=== PATIENT | female | born 2000 | race Caucasian/White ===

== ENCOUNTER 2025-04-30 01:26 | Emergency (ER) | payer OTHER, SELFPAY ==
[2025-04-30 01:28] VITALS: BP 144/84
[2025-04-30 01:45] LABS: Hematocrit 34.1 % (37.0-47.0); Hemoglobin 12.5 g/dL (12.0-16.0); Mean Corp Hgb Conc. 36.7 g/dL (33.0-37.0); Mean Corpuscular Volume 87.0 fL (81.0-99.0); Platelet Count 269 10^3/uL (130-400); Red Cell Dist. Width 12.4 % (11.5-14.5)
[2025-04-30 01:55] LABS: HCG, Serum Qualitative Screen Negative
[2025-04-30 02:08] LABS: Blood Urea Nitrogen 8 mg/dl (7-17); Calcium 9.2 mg/dl (8.4-10.2); Carbon Dioxide 20 mmol/L (22-30); Chloride 109 mmol/L (98-107); Glucose 104 mg/dl (70-99); Sodium 140 mmol/L (135-145); eGFR > 60.00
[2025-04-30 05:09] VITALS: BMI 23.7
[2025-04-30 05:18] VITALS: BP 139/91
[2025-04-30 06:00] VITALS: BP 139/82
[2025-04-30] MEDS: NSS 1000 IV (06:04)
[2025-04-30] MEDS: ZOFRAN 4 MG IV (06:05)
--- NOTE | 2025-04-30 06:51 | ED.GENMED ---
History of Present Illness
<John Sanchez DO - Last Filed: 04/30/25 18:49>
General
Chief Complaint: Abdominal Symptoms
Source: patient
Exam Limitations: none
Time Seen by Provider: 04/30/25 04:53
Nursing documentation reviewed up to this point in time: agreed with
History of Present Illness
History of Present Illness:
Note:
CHIEF COMPLAINT(S)
Nausea and vomiting.
HISTORY OF PRESENT ILLNESS
The patient is a 25-year-old female presenting with nausea and vomiting that began approximately three days ago. She reports persistent symptoms over this duration. She admits to marijuana use, which she states occurs regularly. The patient denies
any recent alcohol consumption, but admits to drinking heavily over the weekend, 3 days ago.. She reports feeling unwell and mentions, 'But I smoke all the time,' indicating frequent marijuana use. There is a suggestion of cyclical vomiting syndrome
potentially related to cannabinoid use as she stated, 'Its been three days. Yeah, but I havent smoked in two or three days.'
SOCIAL DETERMINANTS AFFECTING HEALTH
The patient is currently unemployed and resides on her own. Details about her living situation and employment point towards potential stressors affecting her social and health conditions.
REVIEW OF SYSTEMS
- Gastrointestinal: Nausea and vomiting reported.
PHYSICAL EXAM
General: Alert, no acute distress.
Skin: Warm, dry.
Head: Normocephalic, atraumatic.
Neck: Supple, trachea midline.
Eyes, Ears, Nose, Mouth and Throat: Oral mucosa moist.
Cardiovascular: Normal peripheral perfusion, no edema.
Respiratory: Respirations are non-labored.
Gastrointestinal: Abdomen nondistended.
Back: Normal range of motion, Normal alignment.
Musculoskeletal: Normal range of motion, normal strength.
Neurological: Alert and oriented to person, place, time, and situation, no focal neurological deficit observed.
Psychiatric: Cooperative, appropriate mood and affect.
PLAN
- Perform blood work to investigate the cause of symptoms.
- Administer intravenous fluids for hydration and symptomatic relief.
- Monitor the patient for response to treatment and re-evaluate as necessary.
DIFFERENTIAL DIAGNOSIS
The Differential Diagnosis includes, in no particular order and is not limited to:
1. Cannabinoid Hyperemesis Syndrome
2. Gastroenteritis
3. Alcohol Withdrawal
4. Peptic Ulcer Disease
5. Gastritis
6. Pancreatitis
7. Cholecystitis
8. Viral or bacterial infection
9. -related nausea
10. Cyclical Vomiting Syndrome
Review of Systems
<John Sanchez DO - Last Filed: 04/30/25 18:49>
Review of Systems
Allergies reviewed?: Yes
All Other Systems: ROS reviewed and negative except as documented in HPI and ROS
ABD/GI: Reports abdominal pain, nausea and vomiting
Phy Exam
<John Sanchez DO - Last Filed: 04/30/25 18:49>
General Physical Exam
General Presentation: moderate distress
General age: appears stated age
General Skin: warm and pale
General Habitus: normal
General Mental: alert
General Hydration: dry mucous membranes
ENT Exam
ENT Exam: EOMI, pharynx normal, neck supple and normocephalic
Eye Exam
Eye Exam: PERRL, cornea clear and conjunctiva normal
Cardiovascular Exam
Cardiovascular Exam: regular rate/rhythm, no edema, no murmur and normal peripheral pulses
Pulmonary Exam
Pulmonary Exam: lungs clear, no respiratory distress, no rales, no crackles, no rhonchi, no stridor, no wheezing and no cough
Gastrointestinal Exam
Gastrointestinal Exam: normal bowel sounds, non tender, soft, no organomegaly, no pulsatile mass and non distended
Neurological Exam
Neurological Exam: alert, oriented x3, no motor deficits and speech normal
Musculoskeletal Exam
Musculoskeletal Exam: full ROM and no edema
Skin Exam
Skin Exam: normal color, warm/dry, no rash and no petechia
Psychiatric Exam
Psychiatric Exam: normal mood/affect
Course
<John Sanchez, DO - Last Filed: 04/30/25 18:49>
Orders/Labs/Results
Orders:
Orders
04/30/25 01:32
Test Result ONCE
04/30/25 01:36
Basic Metabolic Panel Urgent
Complete Blood Count/No Diff Urgent
HCG, Serum Qualitative Screen Urgent
04/30/25 05:57
0.9% Sodium Chloride 1000 ml [Nss] 1,000 ml IV BOLUS
Ondansetron Injectable [Zofran] 4 mg IV NOW STA
04/30/25 06:12
Add On- LAB Urgent
Tests Added?: ASA, APAP, ETOH
04/30/25 06:39
Acetaminophen Urgent
Comment: ADD ON
Alcohol Urgent
Potassium Urgent
Salicylate Urgent
Comment: ADD ON
04/30/25 08:22
Metoclopramide [Reglan] 10 mg PO NOW STA
Abnormal Lab Results
04/30/25 04/30/25
01:36 06:39
WBC 13.2 H 10^3/uL
(4.8-10.8)
RBC 3.92 L 10^6/uL
(4.20-5.40)
Hct 34.1 L %
(37.0-47.0)
MCH 31.9 H pg
(27.0-31.0)
MPV 11.2 H fL
(7.4-10.4)
Chloride 109 H mmol/L
(98-107)
Carbon Dioxide 20 L mmol/L
(22-30)
Creatinine 0.5 L mg/dL
(0.6-1.0)
Glucose 104 H mg/dl
(70-99)
Salicylates < 1.0 L mg/dl
(2.0-20.0)
Acetaminophen < 10 L ug/ml
(10-30)
04/30/25 01:36
04/30/25 06:39
Vital Signs
Initial and Last Documented VS:
Initial Vital Signs
Pulse Resp BP Pulse Ox
64 20 144/84 100
04/30/25 01:28 04/30/25 01:28 04/30/25 01:28 04/30/25 01:28
Last Documented Vital Signs
Temp Pulse Resp BP Pulse Ox
97.9 F 64 18 129/81 98
04/30/25 08:38 04/30/25 08:38 04/30/25 08:38 04/30/25 08:38 04/30/25 08:38
<Shaka Silverio, DO - Last Filed: 04/30/25 08:26>
Orders/Labs/Results
Orders:
Orders
04/30/25 01:32
Test Result ONCE
04/30/25 01:36
Basic Metabolic Panel Urgent
Complete Blood Count/No Diff Urgent
HCG, Serum Qualitative Screen Urgent
04/30/25 05:57
0.9% Sodium Chloride 1000 ml [Nss] 1,000 ml IV BOLUS
Ondansetron Injectable [Zofran] 4 mg IV NOW STA
04/30/25 06:12
Add On- LAB Urgent
Tests Added?: ASA, APAP, ETOH
04/30/25 06:39
Acetaminophen Urgent
Comment: ADD ON
Alcohol Urgent
Potassium Urgent
Salicylate Urgent
Comment: ADD ON
04/30/25 08:22
Metoclopramide [Reglan] 10 mg PO NOW STA
Abnormal Lab Results
04/30/25 04/30/25
01:36 06:39
WBC 13.2 H 10^3/uL
(4.8-10.8)
RBC 3.92 L 10^6/uL
(4.20-5.40)
Hct 34.1 L %
(37.0-47.0)
MCH 31.9 H pg
(27.0-31.0)
MPV 11.2 H fL
(7.4-10.4)
Chloride 109 H mmol/L
(98-107)
Carbon Dioxide 20 L mmol/L
(22-30)
Creatinine 0.5 L mg/dL
(0.6-1.0)
Glucose 104 H mg/dl
(70-99)
Salicylates < 1.0 L mg/dl
(2.0-20.0)
Acetaminophen < 10 L ug/ml
(10-30)
04/30/25 01:36
04/30/25 06:39
Vital Signs
Initial and Last Documented VS:
Initial Vital Signs
Pulse Resp BP Pulse Ox
64 20 144/84 100
04/30/25 01:28 04/30/25 01:28 04/30/25 01:28 04/30/25 01:28
Last Documented Vital Signs
Temp Pulse Resp BP Pulse Ox
97.9 F 64 18 129/81 98
04/30/25 08:38 04/30/25 08:38 04/30/25 08:38 04/30/25 08:38 04/30/25 08:38
<John Sanchez DO - Last Filed: 04/30/25 18:49>
*Pulse Oximetry
SaO2: 98
Oxygen Mode of Delivery: Room air
Patient hypoxic: no
*Critical Care Note
Total Time (30-74mins, 75-104mins- exclusive of procedures): Not Applicable
<Shaka Silverio DO - Last Filed: 04/30/25 08:26>
Update Note
Update Note:
8:20 AM care of patient was initially transitioned earlier in the morning pending reassessment after fluids, blood work and Zofran. Patient presented with vomiting and dry heaves. After Zofran, she is no longer dry heaving. When I assessed the
patient, she is eating ice chips without difficulty. She states she was recently at a [facility] for the same issue. She states they sent a prescription to Zofran to her pharmacy but she never filled it yet. Will give dose of p.o.
Reglan to help with symptoms. Abdomen is soft and nontender on my exam. She is otherwise well-appearing nontoxic and feels comfortable going home. We did discuss the leukocytosis but discussed this is likely reactive. She is afebrile with no
abdominal tenderness
ED Attending Note
<John Sanchez, DO - Last Filed: 04/30/25 18:49>
-
Portions of this chart may have been created with voice recognition software.� Occasional wrong word or��sound alike� substitutions may have occurred due to the inherent limitations of voice recognition software.
Discharge Plan
Departure
Patient Disposition: Home (Routine Discharge)
Date of Disposition: 04/30/25
Time of Disposition: 08:23
Patient with high blood pressure during this ER visit?: No
Discharge Problem:
Nausea and vomiting
Instructions: Nausea and Vomiting, Adult (DC)
Prescriptions:
No Action
No Current Medications
0
Referrals:
Veronique Gamboa DO [Family Provider, Family Practice]
Activity Restrictions/Additional Instructions:
Please return for any worsening symptoms.
You may return at any time if you have further concerns.
As you stated, your recent visit to [facility] resulted in a prescription of Zofran sent to your pharmacy. Please fill this prescription.
Please follow up with your doctor at the first available appointment, preferably this week.
Thank you for choosing [facility].
Interventions
Interventions:
*Risk Screen - Suicide Last Done: 04/30/25 05:09
*General Assessment Last Done: 04/30/25 05:09
*Neglect/Abuse Screening Last Done: 04/30/25 05:09
*ED- Fall Risk Assessment Last Done: 04/30/25 05:09
*ED COVID-19 Vaccine History Last Done: 04/30/25 05:09
*Nursing Disposition Last Done: 04/30/25 08:41
GY-Pqjhrd-Bwzcgjauho Assessment Last Done: 04/30/25 05:16
Discharge Date and Time
Discharge Date/Time: 04/30/25 08:42
Print Language: ALBANIAN
[2025-04-30 06:57] VITALS: BP 138/60
[2025-04-30 07:00] VITALS: BP 116/82
[2025-04-30 07:05] LABS: Potassium 4.0 mmol/L (3.5-5.1); Salicylate < 1.0 mg/dl (2.0-20.0)
[2025-04-30] MEDS: REGLAN 10 MG PO (08:34)
[2025-04-30 08:38] VITALS: BP 129/81
[2025-04-30 10:01] LABS: Acetaminophen < 10 ug/ml (10-30)
== END 2025-04-30 08:42 | disposition home or self-care (01) ==
LOC: EMR 01:26
PROVIDERS: EMERGENCY PHYSICIAN Student in an Organized Health Care Education/Training Program; FAMILY PHYSICIAN Family Medicine
DX: R11.2 Nausea with vomiting, unspecified (principal)
CPT/HCPCS: 99283; 96374; 96361; 80048; 80143; 80179; 82077; 84132; 84703; 85027

== ENCOUNTER 2025-05-01 02:22 | Emergency (ER) | payer OTHER, SELFPAY ==
[2025-05-01 02:26] VITALS: BP 139/89
--- NOTE | 2025-05-01 03:01 | ED.GENMED ---
History of Present Illness
General
Chief Complaint: Abdominal Symptoms
Source: patient, ambulance crew and previous hospital records (ED visit for similar complaint less than 24 hours ago. Multiple ED visits at various ED's including [facility], [facility]
[place])
Exam Limitations: none
Time Seen by Provider: 05/01/25 02:27
Nursing documentation reviewed up to this point in time: agreed with
History of Present Illness
History of Present Illness:
The patient is a 25-year-old female with a long-standing history of recurrent nausea and vomiting, reported to be present for the past year. The patient was recently seen less than 24 hours ago in this ED for similar complaint of N/V and had been
hospitalized overnight at [facility] 04/28-04/29. treated for hypophosphatemia, hypomagnesemia and mild hypokalemia. Upon review of records she was also evaluated in the ED front desk administrator on April 28 at [facility] ED, treated
and released. Multiple ED visits early January of this year as well as multiple ED visits April and August of last year for similar complaints. There has been no significant change in symptoms despite receiving supportive care. She admits to
chronic cannabis use and has been diagnosed with cannabis hyperemesis syndrome in the past. Last cannabis use was several days ago. She believes current nausea and vomiting symptoms are related to recent alcohol consumption over the weekend,
specifically 'two [employer] and seltzer drinks' on Monday night. The patient does not typically take any daily medications but has previously been prescribed Reglan (metoclopramide) and Zofran. Treatment with Reglan was not effective in
alleviating her symptoms. The patient has been advised on the possibility of cannabis hyperemesis syndrome, as the patient regularly uses cannabis and it can take months to resolve after cessation. This syndrome is characterized by nausea, vomiting,
and relief with hot showers, which the patient finds occasionally soothing.
She denies risk of .
She denies hematemesis nor hematochezia.
She has not had a fever nor chills. No close contacts with similar symptoms.
She recently relocated yesterday to reside with her boyfriend locally.
She has history of bipolar disorder, anxiety, hyperventilation syndrome, had been maintained on several psychiatric medications but has not been taking these for quite some time.
Past History
Past History
ED Past Medical History: Psychiatric (Bipolar disorder, anxiety, hyperventilation syndrome) and Other (Cannabis hyperemesis syndrome)
ED Past Surgical History: None
Social History
Tobacco: Non-smoker
Alcohol: Occasional
Drug: Marijuana
Personal: Single
Living: with roommate (Currently residing with her boyfriend)
Employment: Not employed
Family History
Family History: Other (Noncontributory)
Phy Exam
Physical Exam
Physical Exam:
GENERAL: 25-year-old woman appears her stated age. Awake and alert, mildly anxious, mildly restless, easily communicative and overall in no acute distress.
EYE: pupils equal and reactive. anicteric. Eyebrows are shaved.
NECK: Supple, nontender, no meningismus, no significant adenopathy.
ENT: posterior pharynx is clear, oral mucosa is moist. TM clear b/l, nares patent.
CARDIAC: Regular rate and rhythm. no murmur.
LUNGS: Clear breath sounds bilaterally, no acute respiratory distress, no wheezes/rales/rhonchi
ABDOMEN: Soft, nondistended, minimal tenderness epigastric region with deep palpation only, no r/g, no cvat. normoactive BS.
NEUROLOGICAL: Alert and oriented x3, no focal neuro deficits. No tremor. Gait is wilson and steady.
SKIN: Warm and dry, normal color, skin intact. No rash.
MUSCULOSKELETAL: No C/C/E. peripheral pulses are full and equal b/l. No palpable tenderness.
PSYCH: Mildly anxious, mildly restless, cooperative.
Course
Orders/Labs/Results
Orders:
Orders
05/01/25 02:42
Urine Drug Abuse Screen Urgent
05/01/25 02:43
Urinalysis Reflex To Culture Urgent
Test Result ONCE
05/01/25 02:59
0.9% Sodium Chloride 1000 ml [Nss] 1,000 ml IV BOLUS
Diphenhydramine [Benadryl] 25 mg IV NOW STA
Ondansetron Injectable [Zofran] 4 mg IV NOW STA
Pantoprazole [Protonix IV] 40 mg IV NOW STA
05/01/25 03:11
Alcohol Urgent
Complete Blood Count/With Diff Urgent
Comprehensive Metabolic Panel Urgent
HCG, Serum Qualitative Screen Urgent
Lipase Urgent
Magnesium Urgent
Phosphorus Urgent
05/01/25 04:31
Potassium Chloride [KCl] 20 meq PO NOW STA
Abnormal Lab Results
05/01/25
03:11
WBC 11.5 H 10^3/uL
(4.8-10.8)
RBC 3.90 L 10^6/uL
(4.20-5.40)
Hct 34.0 L %
(37.0-47.0)
MPV 10.8 H fL
(7.4-10.4)
Abs Immat Gran (auto) 0.1 H 10^3/uL
(0-0.05)
Absolute Neuts (auto) 8.0 H 10^3/uL
(1.4-6.5)
Absolute Monos (auto) 0.9 H 10^3/uL
(0.1-0.6)
Potassium 3.0 L mmol/L
(3.5-5.1)
Carbon Dioxide 21 L mmol/L
(22-30)
BUN 6 L mg/dl
(7-17)
Creatinine 0.5 L mg/dL
(0.6-1.0)
Glucose 100 H mg/dl
(70-99)
Alkaline Phosphatase 37 L U/L
(38-126)
05/01/25 03:11
05/01/25 03:11
Vital Signs
Initial and Last Documented VS:
Initial Vital Signs
Temp Pulse Resp BP Pulse Ox
97.6 F 53 24 139/89 100
05/01/25 02:26 05/01/25 02:26 05/01/25 02:26 05/01/25 02:26 05/01/25 02:26
Last Documented Vital Signs
Temp Pulse Resp BP Pulse Ox
97.6 F 53 24 139/89 99
05/01/25 02:26 05/01/25 02:26 05/01/25 02:26 05/01/25 02:26 05/01/25 03:44
MDM/Problems Addressed
Differential Diagnosis Includes:
The Differential Diagnosis includes, in no particular order and is not limited to:
1. Cannabis Hyperemesis Syndrome
2. Gastritis
3. Peptic Ulcer Disease
4. Gastroesophageal Reflux Disease (GERD)
5. Gallbladder Disease
6. Pancreatitis
7. Intestinal Obstruction
8. Cyclic Vomiting Syndrome
9. Neurological Causes (e.g., Migraine)
10. Metabolic Disorders (e.g., Hyperthyroidism)
MDM/Problems Addressed:
Recurrent nausea and vomiting.
Chronic cannabis use.
Anxiety, restlessness.
Prior records reviewed.
Previous unremarkable imaging at other institutions.
1. Recheck blood work for any biochemical imbalances.
2. Administer intravenous fluids to maintain hydration.
3. Consider starting treatment with intravenous Zofran (ondansetron) to manage nausea and vomiting. This has been effective in the past.
4. Explore alternative antiemetic options like intravenous Haloperidol.
5. Discuss further cannabis cessation strategies, as continued use can exacerbate symptoms related to cannabis hyperemesis syndrome.
Chronic conditions affecting care:
Chronic cannabis use
Chronic conditions affecting care: Psychiatric illness
*Pulse Oximetry
SaO2: 100
Oxygen Mode of Delivery: Room air
Patient hypoxic: no
*Superintendent Renting Managing Interpretation
Rate: normal
Interpretation: normal
Rhythm: sinus
*Critical Care Note
Total Time (30-74mins, 75-104mins- exclusive of procedures): Not Applicable
Update Note
Update Note:
05:50
Patient resting comfortably after IV fluids, IV Zofran and Benadryl.
No further restlessness, no further nausea.
Abdomen is soft without appreciable tenderness.
Tolerating ice chips, crackers.
Labs revealed normal H&H, mildly elevated white blood cell count, improving from previous.
Mild hypokalemia. Normal BUN and creatinine, normal phosphorus, normal magnesium. Negative hCG. Negative EtOH.
Potassium has been repleted orally.
Strongly encourage patient to discontinue all cannabis use and remain cannabis free.
Recommend clear liquid diet, bland foods and continue Zofran for as needed nausea.
Will refer to our [facility] for follow-up.
ED Attending Note
-
Portions of this chart may have been created with voice recognition software.� Occasional wrong word or��sound alike� substitutions may have occurred due to the inherent limitations of voice recognition software.
Discharge Plan
Departure
Patient Disposition: Home (Routine Discharge)
Date of Disposition: 05/01/25
Time of Disposition: 05:50
Patient with high blood pressure during this ER visit?: No
Condition: Good
Discharge Problem:
Recurrent nausea and vomiting, Cannabis hyperemesis syndrome
Instructions: Cannabis hyperemesis syndrome
Prescriptions:
No Action
No Current Medications
0
Referrals:
[facility] [Outside] - Call in 1-3 days for appt
UNKNOWN - PT DOES,NOT KNOW [Family Provider]
Interventions
Interventions:
*Risk Screen - Suicide Last Done: 05/01/25 02:26
*General Assessment Last Done: 05/01/25 02:26
*Neglect/Abuse Screening Last Done: 05/01/25 02:26
*ED- Fall Risk Assessment Last Done: 05/01/25 03:47
*ED COVID-19 Vaccine History Last Done: 05/01/25 02:26
NH-Dxwvym-Wwrpnagaun Assessment Last Done: 05/01/25 03:45
Discharge Date and Time
Print Language: PORTUGUESE
[2025-05-01] MEDS: PROTONIX IV 40 MG IV (03:13)
[2025-05-01] MEDS: NSS 1000 IV (03:13)
[2025-05-01] MEDS: BENADRYL 25 MG IV (03:13)
[2025-05-01] MEDS: ZOFRAN 4 MG IV (03:13)
[2025-05-01 03:26] LABS: Hematocrit 34.0 % (37.0-47.0); Hemoglobin 12.1 g/dL (12.0-16.0); Mean Corp Hgb Conc. 35.6 g/dL (33.0-37.0); Mean Corpuscular Volume 87.2 fL (81.0-99.0); Nucleated Red Blood Cells % 0 %; Platelet Count 219 10^3/uL (130-400); Red Cell Dist. Width 12.0 % (11.5-14.5)
[2025-05-01 03:36] LABS: HCG, Serum Qualitative Screen Negative
[2025-05-01 03:42] LABS: ALT (SGPT) 23 U/L (0-35); AST (SGOT) 34 U/L (14-36); Albumin 4.7 g/dl (3.5-5.0); Alkaline Phosphatase 37 U/L (38-126); Blood Urea Nitrogen 6 mg/dl (7-17); Calcium 9.4 mg/dl (8.4-10.2); Carbon Dioxide 21 mmol/L (22-30); Chloride 105 mmol/L (98-107); Estimated Creatinine Clearance 93 ml/min; Glucose 100 mg/dl (70-99); Lipase 130 U/L (23-300); Magnesium 1.7 mg/dl (1.6-2.3); Potassium 3.0 mmol/L (3.5-5.1); Sodium 136 mmol/L (135-145); Total Protein 7.1 g/dl (6.3-8.2); eGFR > 60.00
[2025-05-01] MEDS: KCL 20 MEQ PO (05:34)
[2025-05-01] MEDS: HALDOL 1 MG IV (06:36)
[2025-05-01 07:00] LABS: Urine Character Clear (Clear)
[2025-05-01 07:36] LABS: Urine Red Blood Cell 0-2 /HPF (0-2); Urine White Cell 0-2 /HPF (0-5)
== END 2025-05-01 06:40 | disposition home or self-care (01) ==
LOC: EMR 02:22
PROVIDERS: EMERGENCY PHYSICIAN Emergency Medicine
DX: R11.2 Nausea with vomiting, unspecified (principal); F12.90 Cannabis use, unspecified, uncomplicated; E87.6 Hypokalemia; F31.9 Bipolar disorder, unspecified; F41.9 Anxiety disorder, unspecified; F45.8 Other somatoform disorders; Z91.128 Patient's intentional underdosing of medication regimen for other reason
CPT/HCPCS: 99284; 96374; 96375 ×4; 96361; 80053; 80306; 80307; 81003; 81015; 82077; 83690; 83735; 84100; 84703; 85025

== ENCOUNTER 2025-08-01 15:39 | Observation (INO) | payer OTHER, SELFPAY ==
[2025-08-01 10:59] VITALS: BMI 23.2
[2025-08-01] MEDS: ATIVAN 1 MG IV (11:07)
[2025-08-01] MEDS: ZOFRAN 4 MG IV (11:08)
[2025-08-01] MEDS: BENADRYL 25 MG IV (11:08)
--- NOTE | 2025-08-01 11:32 | ED.GENMED ---
History of Present Illness
General
Chief Complaint: Abdominal Pain
Source: patient, records and previous hospital records
Exam Limitations: none
Time Seen by Provider: 08/01/25 10:59
History of Present Illness
History of Present Illness:
25-year-old female presents with anxiety nausea vomiting onset earlier today
She called EMS herself unsure if she could be , apparently has been seen in the ER previously for hyperemesis cannabis she states is is not related to that although smoked marijuana up until yesterday
Through my review of our EMR Dr. Ho's notes patient has been to several ERs with similar episodes of metabolic abnormalities
Patient denies any heavy menstrual bleeding, denies any rectal bleeding
Past History
Past History
ED Past Medical History: Psychiatric (Bipolar disorder, anxiety, hyperventilation syndrome) and Other (Cannabis hyperemesis syndrome)
ED Past Surgical History: None
Social History
Tobacco: Non-smoker
Alcohol: Occasional
Drug: Marijuana
Personal: Single
Living: with roommate (Currently residing with her boyfriend)
Employment: Not employed
Family History
Family History: Other (Noncontributory)
Review of Systems
Review of Systems
All Other Systems: Not applicable
Constitutional: Denies fever or fatigue
Respiratory: Reports no symptoms
ABD/GI: Reports abdominal pain, nausea, vomiting and anorexia
Phy Exam
Physical Exam
Physical Exam:
Physical Exam
General: Anxious 25-year-old nauseous dry heaves
Neck: Lips are slightly dry, no jaundice
Heart: s1/s2 regular rate and rhythm, no murmur. equal radial pulses.
Lungs: no acute respiratory distress. clear bilaterally
Abdomen: Mild epigastric tender, rectal brown guaiac-negative stool
Neuro: alert and oriented. no focal neurological deficits
Skin: no rash
Psychiatric: Agitated but redirectable
Extremities: no edema
Course
Orders/Labs/Results
Orders:
Orders
08/01/25 11:01
Diphenhydramine [Benadryl] 25 mg IV NOW STA
Lorazepam [Ativan] 1 mg IV NOW STA
Ondansetron Injectable [Zofran] 4 mg IV NOW STA
08/01/25 11:02
Drug Screen, Urine [Urine Drug Abuse Screen] Urgent
Test Result ONCE
08/01/25 11:16
Complete Blood Count/With Diff Urgent
08/01/25 11:25
0.9% Sodium Chloride 1000 ml [Nss] 1,000 ml IV BOLUS
08/01/25 12:03
Haloperidol Lactate [Haldol] 3 mg IM NOW STA
08/01/25 12:06
Complete Blood Count/With Diff Urgent
08/01/25 13:17
Type+Screen Urgent
BBK Wristband Number:
08/01/25 14:07
0.9% Sodium Chloride 1000 ml [Nss] 1,000 ml IV BOLUS
Metoclopramide [Reglan] 10 mg IV NOW STA
08/01/25 14:14
Comprehensive Metabolic Panel Urgent
HCG, Serum Qualitative Screen Urgent
Lipase Urgent
08/01/25 14:16
Complete Blood Count/With Diff Urgent
Abnormal Lab Results
08/01/25 08/01/25 08/01/25
11:16 12:06 14:14
WBC 2.7 L 10^3/uL 11.5 H 10^3/uL
(4.8-10.8) (4.8-10.8)
RBC 1.10 L 10^6/uL
(4.20-5.40)
Hgb 3.4 L* g/dL
(12.0-16.0)
Hct 11.3 L* %
(37.0-47.0)
MCV 102.7 H fL
(81.0-99.0)
MCH 31.8 H pg 31.8 H pg
(27.0-31.0) (27.0-31.0)
MCHC 31.0 L g/dL
(33.0-37.0)
Plt Count 72 L 10^3/uL
(130-400)
MPV 10.5 H fL
(7.4-10.4)
Abs Immat Gran (auto)
Absolute Neuts (auto) 9.8 H 10^3/uL
(1.4-6.5)
Absolute Lymphs (auto) 0.4 L 10^3/uL
(1.2-3.4)
Neutrophils % 83.9 H % 85.3 H %
(42.2-75.2) (42.2-75.2)
Lymphocytes % 12.1 L % 10.7 L %
(20.5-51.1) (20.5-51.1)
Chloride 110 H mmol/L
(98-107)
Carbon Dioxide 21 L mmol/L
(22-30)
Glucose 102 H mg/dl
(70-99)
08/01/25
14:16
WBC 14.2 H 10^3/uL
(4.8-10.8)
RBC
Hgb
Hct
MCV
MCH 31.1 H pg
(27.0-31.0)
MCHC
Plt Count
MPV
Abs Immat Gran (auto) 0.1 H 10^3/uL
(0-0.05)
Absolute Neuts (auto) 12.7 H 10^3/uL
(1.4-6.5)
Absolute Lymphs (auto) 0.9 L 10^3/uL
(1.2-3.4)
Neutrophils % 89.8 H %
(42.2-75.2)
Lymphocytes % 6.5 L %
(20.5-51.1)
Chloride
Carbon Dioxide
Glucose
08/01/25 14:16
08/01/25 14:14
Vital Signs
Initial and Last Documented VS:
Initial Vital Signs
Pulse Resp Pulse Ox
67 18 97
08/01/25 10:59 08/01/25 10:59 08/01/25 10:59
Last Documented Vital Signs
Pulse Resp BP Pulse Ox
59 23 130/67 98
08/01/25 15:00 08/01/25 15:00 08/01/25 14:26 08/01/25 15:00
*Pulse Oximetry
SaO2: 97
Oxygen Mode of Delivery: Room air
Patient hypoxic: no
*Critical Care Note
Total Time (30-74mins, 75-104mins- exclusive of procedures): Not Applicable
Update Note
Update Note:
Update will get her comfortable with antiemetics, anxiolytics check screening blood work IV fluids
CBC noted will repeat, in the meantime check type and screen
Patient feeling better after meds taking some ice chips
2:30 PM patient with recurrent emesis, been some issue getting labs, nursing involved, will continue to monitor third dose of antiemetic low threshold to admit
Again patient vomited after ice chips
ED Attending Note
-
Portions of this chart may have been created with voice recognition software.� Occasional wrong word or��sound alike� substitutions may have occurred due to the inherent limitations of voice recognition software.
Discharge Plan
Departure
Patient Disposition: Admit
Date of Disposition: 08/01/25
Time of Disposition: 15:07
Admit to: Med/Surg
Presentation/result/management discussed w/ accepting MD/DO: Hospitalist
Patient with high blood pressure during this ER visit?: No
Condition: Fair
Discharge Problem:
Intractable nausea and vomiting
Prescriptions:
No Action
No Current Medications
0
Referrals:
UNKNOWN - PT NOT,INTERVIEWE [Family Provider]
Interventions
Interventions:
*Risk Screen - Suicide Last Done: 08/01/25 14:34
*General Assessment Last Done: 08/01/25 10:59
*Neglect/Abuse Screening Last Done: 08/01/25 14:34
*ED- Fall Risk Assessment Last Done: 08/01/25 10:59
*ED COVID-19 Vaccine History Last Done: 08/01/25 10:59
*ED Influenza Vaccine History Last Done: 08/01/25 10:59
MS-Hqpufe-Coswisaorg Assessment Last Done: 08/01/25 12:48
Discharge Date and Time
Print Language: LATVIAN
[2025-08-01] MEDS: NSS 1000 IV ×3 (11:50→18:35)
[2025-08-01 11:55] LABS: Hematocrit 11.3 % (37.0-47.0); Hemoglobin 3.4 g/dL (12.0-16.0); Mean Corp Hgb Conc. 31.0 g/dL (33.0-37.0); Mean Corpuscular Volume 102.7 fL (81.0-99.0); Nucleated Red Blood Cells % 0 %; Platelet Count 72 10^3/uL (130-400); Red Cell Dist. Width 12.0 % (11.5-14.5)
[2025-08-01] MEDS: HALDOL 3 MG IM (12:10)
[2025-08-01 12:20] LABS: Anisocytosis 1+; Hypochromasia 1+; Normal RBC Morphology No
[2025-08-01 12:21] LABS: Acanthocytes 1+; Ovalocytes 1+; Polychromasia 1+
[2025-08-01 12:51] LABS: Hematocrit 40.3 % (37.0-47.0); Hemoglobin 13.4 g/dL (12.0-16.0); Mean Corp Hgb Conc. 33.3 g/dL (33.0-37.0); Mean Corpuscular Volume 95.7 fL (81.0-99.0); Nucleated Red Blood Cells % 0 %; Platelet Count 286 10^3/uL (130-400); Red Cell Dist. Width 12.2 % (11.5-14.5)
[2025-08-01 14:00] VITALS: BP 109/64
[2025-08-01] MEDS: REGLAN 10 MG IV (14:17)
[2025-08-01 14:24] LABS: Hematocrit 41.4 % (37.0-47.0); Hemoglobin 14.0 g/dL (12.0-16.0); Mean Corp Hgb Conc. 33.8 g/dL (33.0-37.0); Mean Corpuscular Volume 92.0 fL (81.0-99.0); Nucleated Red Blood Cells % 0.1 %; Platelet Count 283 10^3/uL (130-400); Red Cell Dist. Width 12.1 % (11.5-14.5)
[2025-08-01 14:26] VITALS: BP 130/67
[2025-08-01 15:01] LABS: HCG, Serum Qualitative Screen Negative
[2025-08-01 15:03] LABS: ALT (SGPT) 13 U/L (0-35); AST (SGOT) 23 U/L (14-36); Albumin 4.8 g/dl (3.5-5.0); Alkaline Phosphatase 55 U/L (38-126); Blood Urea Nitrogen 12 mg/dl (7-17); Calcium 9.4 mg/dl (8.4-10.2); Carbon Dioxide 21 mmol/L (22-30); Chloride 110 mmol/L (98-107); Estimated Creatinine Clearance 93 ml/min; Glucose 102 mg/dl (70-99); Lipase 47 U/L (23-300); Potassium 4.1 mmol/L (3.5-5.1); Sodium 140 mmol/L (135-145); Total Protein 7.5 g/dl (6.3-8.2); eGFR > 60.00
--- NOTE | 2025-08-01 15:18 | HPS.HSE ---
Family Physician
-
Family Physician: INTERVIEWE UNKNOWN - PT NOT
Chief Complaint
-
vomiting
History of Present Illness
25-year-old female past medical history of anxiety, bipolar disorder, cannabis hyperemesis syndrome, hyperventilation syndrome, presenting with nausea and vomiting starting today. She complains of pain in her upper belly.
She uses 2-3 bowls of marijuana every day. Denies alcohol or any other drugs. She takes marijuana for frequent headaches.
Patient has had prior hospitalizations for recurrent nausea and vomiting associate with electrolyte abnormalities. She had been hospitalized at [facility] on April 28. She was in the emergency room here on 05/01.
Medical History
Past Medical History
Past Medical History: Reports Other (anxiety, bipolar disorder, cannabis hyperemesis syndrome, hyperventilation syndrome,)
Past Surgical History: Reports None
Social History
Tobacco: Non-smoker
Alcohol: None
Drug: Marijuana
Family History
Family History: Not pertinent
Allergies / Home Medications
Allergies reflects when Allergies were last updated in [facility].
Home Medications with original date entered in [facility]
Allergy/Medication List:
Allergies
Allergy/AdvReac Type Severity Reaction Status Date / Time
No Known Allergies Allergy Verified 05/01/25 03:51
Home Medications
No Meds [No Current Medications] 04/30/25
Review of Systems
-
History Source: Patient
A 12 point ROS was completed and negative except as noted: Yes
Constitutional: Reports No Symptoms
EENT: Reports No Symptoms
Respiratory: Reports No Symptoms
Cardiac: Reports No Symptoms
Abdomen/GI: Reports See HPI
: Reports No Symptoms
Musculoskeletal: Reports No Symptoms
Skin: Reports No Symptoms
Neurological: Reports No Symptoms
Endocrine: Reports No Symptoms
Hematologic/Lymphatic: Reports No Symptoms
Psych: Reports No Symptoms
Physical Exam
Vital Signs
Vital Signs
Pulse Resp BP Pulse Ox
59 23 130/67 98
08/01/25 15:00 08/01/25 15:00 08/01/25 14:26 08/01/25 15:00
Physical Exam
General: Well Developed, Well Nourished and No Apparent Distress
HEENT: NormoCephalic, Moist mucous membranes and Atraumatic
Respiratory: Clear
Cardiac: S1/S2 and Regular Rhythm; No Murmur or Rub
GI: Soft, Non Distended, Normal Bowel Sounds and Tender (epigastric); No Organomegaly
Rectal: Deferred by Provider
Musculoskeletal: No Clubbing, No Cyanosis and No Edema
Skin: No Rash
Neuro: Nonfocal/grossly intact
Laboratory Results
-
08/01/25 14:16
08/01/25 14:14
Laboratory Results
Total Bilirubin 0.7 mg/dl (0.2-1.3) 08/01/25 14:14
AST 23 U/L (14-36) 08/01/25 14:14
ALT 13 U/L (0-35) 08/01/25 14:14
Alkaline Phosphatase 55 U/L (38-126) 08/01/25 14:14
Lipase 47 U/L (23-300) 08/01/25 14:14
Data Reviewed
-
Lab Data: Labs Reviewed by me
Old Records: Reviewed
Impression/Plan
-
IMPRESSION:
PLAN:
# Hyperemesis secondary to recurrent cannabis hyperemesis
-hCG negative
-Lipase unremarkable
- Clear liquid, advance as tolerated
- IV fluids
- Zofran, Reglan given
-Ativan, Haldol given for agitation
- UDS pending
- Initial CBC showing pancytopenia but redraw shows that this was a lab error
# Regular marijuana use
- Takes for recreational/headaches
Anxiety/bipolar disorder
History of hyperventilation syndrome
History of headache/migraine
Full code
DVT prophylaxis-heparin
N.p.o.
[2025-08-01 16:00] VITALS: BP 112/47
--- NOTE | 2025-08-01 16:16 | CM ---
Patient seen at bedside in ED. Patient stated that she lives with her grandmother, Jacklyn in [place] but has been staying with her boyfriend in his [address] [place]. Patient sleepy and did not know name of her PCP but was able to tell
CM that she uses the [facility] in [place] for medications. Patient indicated that her boyfriend would contact her grandmother and she was texting to him to call her grandmother. Patient appeared reluctant to give CM any other information. Patient here as
OBS at this time and CM reviewed OBS form and provided form to patient. Signed form given to refinery operator helper crude unit for filling. CM will continue to follow for discharge planning needs.
Plan; home with significant other
[2025-08-01 17:40] VITALS: BP 141/86; BMI 21.9
[2025-08-01 19:30] VITALS: BP 139/89
[2025-08-01 23:51] VITALS: BP 133/78
[2025-08-02] MEDS: REGLAN 10 MG IV (01:57)
[2025-08-02 03:40] VITALS: BP 139/80
[2025-08-02 07:09] LABS: Hematocrit 38.8 % (37.0-47.0); Hemoglobin 13.1 g/dL (12.0-16.0); Mean Corp Hgb Conc. 33.8 g/dL (33.0-37.0); Mean Corpuscular Volume 92.8 fL (81.0-99.0); Nucleated Red Blood Cells % 0 %; Platelet Count 277 10^3/uL (130-400); Red Cell Dist. Width 12.1 % (11.5-14.5)
[2025-08-02 07:25] VITALS: BP 124/74
[2025-08-02 07:26] LABS: ALT (SGPT) 13 U/L (0-35); AST (SGOT) 26 U/L (14-36); Albumin 4.5 g/dl (3.5-5.0); Alkaline Phosphatase 53 U/L (38-126); Blood Urea Nitrogen 6 mg/dl (7-17); Calcium 9.1 mg/dl (8.4-10.2); Carbon Dioxide 22 mmol/L (22-30); Chloride 104 mmol/L (98-107); Estimated Creatinine Clearance 104 ml/min; Glucose 97 mg/dl (70-99); Sodium 133 mmol/L (135-145); Total Protein 7.2 g/dl (6.3-8.2); eGFR > 60.00
[2025-08-02 07:34] LABS: Potassium 3.8 mmol/L (3.5-5.1)
[2025-08-02] MEDS: NSS 1000 IV (07:49)
--- NOTE | 2025-08-02 10:42 | W.PN.HOSP.TC ---
Today's Communication/Plan
-
d/c
Assessment / Plan
Assessment / Plan
Patient seen and examined with MIREYA Lima present at bedside for the entirety of the interview and physical exam:
Gen: NAD, AAOx3.
Eyes: EOMI, PERRLA, no scleral icterus.
Neck: supple.
CV: RRR, +S1/S2, no m/r/g.
Resp: CTAB, no rales, wheezes, or rhonchi.
Abd: +BS, soft, NT, ND
Skin: No rashes.
Neuro: CN 2-12 intact, non-focal.
Psych: Normal mood and affect.
Recurrent cannabis hyperemesis syndrome:
-Chronic marijuana use used recreationally and to treat headaches
-B-HCG NEG, lipase normal
- Has been on IVF support, antiemetics
-UDS POS for Marijuana (benzo given here)
-clears, advance as tolerated
-Zofran/Reglan PRN
-Telemetry reviewed, no concerning arrhythmias. Patient has been in sinus rhythm.
-Medically cleared for discharge at this time. Will be given a prescription for Zofran. The patient was instructed that should she have persistent vomiting or any other concerning symptoms that she should return to the ER immediately. She
verbally acknowledged understanding of this.
Other problems:
Anxiety/bipolar disorder
h/o hyperventilation syndrome
Migraine headaches
FULL/heparin
Total time spent on d/c = 31 min. This included today's physical exam, progress note, review of laboratory and diagnostic data, preparation of discharge documents and prescriptions, and discussions about the pt's hospital course and discharge plan
with the patient and other medical assistant secretary involved in the patient's care.
Anticipated Discharge: Today
Subjective/Interval History
-
Date of Service: August 02, 2025
Patient currently denies abdominal pain. She had vomiting earlier this morning when she drank a large amount of water but no vomiting since. She is asking to shower and go home.
Objective Data
-
Labs:
Laboratory Results
08/02/25
06:28
WBC 17.1 H
Hgb 13.1
Hct 38.8
Plt Count 277
Sodium 133 L
Potassium 3.8
Chloride 104
Carbon Dioxide 22
BUN 6 L
Creatinine 0.4 L
Glucose 97
Calcium 9.1
Total Bilirubin 0.9
AST 26
ALT 13
Alkaline Phosphatase 53
Vital Signs:
Vital Signs
Temp Pulse Resp BP Pulse Ox
98.6 F 69 18 124/74 97
08/02/25 07:25 08/02/25 07:25 08/02/25 07:25 08/02/25 07:25 08/02/25 07:25
I&O
08/01/25 08/02/25 08/03/25
06:59 06:59 06:59
Intake Total 3000 / 3000
Output Total 800 / 800
Balance 2200 / 2200
[2025-08-02 11:39] VITALS: BP 142/94
[2025-08-02] MEDS: ZOFRAN 4 MG IV (11:50)
--- NOTE | 2025-08-02 12:26 | CM ---
CM reviewed chart, patient seen bedside, for d/c today.
Patient confirms transport home, denies needs from CM.
Plan; home no needs
--- NOTE | 2025-08-02 13:23 | W.DCSUMMARY ---
Discharge Summary
Discharge Data
Date of Admission: 08/01/25
Date of Discharge: 08/02/25
-
Pending Results: No
Hospital Course
Primary diagnoses:
Recurrent cannabinoid hyperemesis syndrome
Secondary diagnoses:
Hyponatremia, mild
Anxiety/bipolar disorder
h/o hyperventilation syndrome
Migraine headaches
Consultants:
None
Imaging:
None
Hospital course: 25-year-old female who was admitted yesterday with a chief complaint of vomiting as outlined in the H&P done on admission. This was due to recurrent cannabinoid hyperemesis syndrome. Patient had no significant electrolyte
abnormalities. She was treated supportively with IV fluids and antiemetics. On the day of discharge the patient denied abdominal pain and was asking to leave the hospital. She was discharged in medically stable condition with strict instructions
to return to the ER if she had any acute concerns.
Discharge Plan
-
Patient Disposition: Home (Routine Discharge)
Discharge Diagnosis/Procedures: Cannabinoid hyperemesis syndrome
Condition: Good
Diet: As tolerated
Activity: As tolerated
Driving Restrictions: As prior to admission
Referrals:
UNKNOWN - PT NOT,INTERVIEWE [Family Provider] - in less than 1 week
Prescriptions:
New
ondansetron HCl 4 mg tablet
4 mg PO Q6H PRN (Reason: nausea) Qty: 14 0RF
Discharge Orders:
Discharge Patient (As Directed); Ordered 08/02/25
Ordered By: Clifford Caldwell
Discharge Date and Time
Discharge Date/Time: 08/02/25 13:11
Print Language: KOREAN
== END 2025-08-02 13:11 | disposition home or self-care (01) ==
LOC: 4 WEST ACU 15:39
PROVIDERS: ADMITTING PHYSICIAN Hospitalist; ATTENDING PHYSICIAN Internal Medicine; EMERGENCY PHYSICIAN Emergency Medicine
DX: R11.16 Cannabis hyperemesis syndrome (principal); E87.1 Hypo-osmolality and hyponatremia; F31.9 Bipolar disorder, unspecified; F41.9 Anxiety disorder, unspecified; G43.909 Migraine, unspecified, not intractable, without status migrainosus; F12.90 Cannabis use, unspecified, uncomplicated
CPT/HCPCS: 80053; 80306; 80307; 82077; 83690; 84703; 85025; 86850; 86900; 86901; 96361; 96372; 96374; 96375; 99284; 99406; G0378

== ENCOUNTER 2025-08-02 20:41 | Emergency (ER) | payer OTHER, SELFPAY ==
[2025-08-02 20:44] VITALS: BP 130/98
[2025-08-02 21:12] VITALS: BP 133/88; BMI 24.4
--- NOTE | 2025-08-02 21:14 | ED.GENMED ---
History of Present Illness
General
Chief Complaint: Abdominal Symptoms
Source: patient
Exam Limitations: none
Time Seen by Provider: 08/02/25 21:05
Nursing documentation reviewed up to this point in time: agreed with
History of Present Illness
History of Present Illness:
25-year-old female with past medical history of cannabinoid hyperemesis syndrome anxiety bipolar presents today with continued vomiting. Patient was just discharged this morning however reports that she was never able to get her Zofran prescription
filled because it was too far. She is requesting that the prescription be sent to a closer pharmacy in [place]. She denies any fever chills no other complaints.
Past History
Past History
ED Past Medical History: Psychiatric (Bipolar disorder, anxiety, hyperventilation syndrome) and Other (Cannabis hyperemesis syndrome)
ED Past Surgical History: None
Social History
Tobacco: Non-smoker
Alcohol: Occasional
Drug: Marijuana
Personal: Single
Living: with roommate (Currently residing with her boyfriend)
Employment: Not employed
Family History
Family History: Other (Noncontributory)
Phy Exam
General Physical Exam
General Presentation: well appearing
General age: appears stated age
General Skin: warm and dry
General Habitus: normal
General Mental: alert
General Hydration: appears well hydrated
Cardiovascular Exam
Cardiovascular Exam: regular rate/rhythm, no murmur and normal peripheral pulses
Pulmonary Exam
Pulmonary Exam: lungs clear and no respiratory distress
Neurological Exam
Neurological Exam: alert and oriented x3
Musculoskeletal Exam
Musculoskeletal Exam: full ROM
Skin Exam
Skin Exam: normal color and warm/dry
Psychiatric Exam
Psychiatric Exam: normal mood/affect
Course
Orders/Labs/Results
Orders:
Orders
08/02/25 21:16
Cardiac Monitoring- Treatment ONCE
IV Insert/Care/Rem.- Treatment PRN
0.9% Sodium Chloride 1000 ml [Nss] 1,000 ml IV BOLUS
08/02/25 21:17
Electrocardiogram (*1) Stat
Reason for Study: Abdominal Pain
EKG- Treatment ONCE
Test Result ONCE
08/02/25 21:24
Complete Blood Count/With Diff Urgent
Comprehensive Metabolic Panel Urgent
HCG, Serum Qualitative Screen Urgent
08/02/25 21:30
Haloperidol Lactate [Haldol] 1 mg IV NOW STA
08/02/25 22:41
Ondansetron Orally Disint [Zofran Odt (Orally Disintegrating)] 4 mg PO NOW STA
Abnormal Lab Results
08/02/25
21:24
WBC 12.5 H 10^3/uL
(4.8-10.8)
RBC 3.93 L 10^6/uL
(4.20-5.40)
Hct 34.6 L %
(37.0-47.0)
MCH 31.6 H pg
(27.0-31.0)
Abs Immat Gran (auto) 0.1 H 10^3/uL
(0-0.05)
Absolute Neuts (auto) 10.2 H 10^3/uL
(1.4-6.5)
Absolute Monos (auto) 0.8 H 10^3/uL
(0.1-0.6)
Neutrophils % 81.4 H %
(42.2-75.2)
Lymphocytes % 11.4 L %
(20.5-51.1)
Sodium 134 L mmol/L
(135-145)
Potassium 3.4 L mmol/L
(3.5-5.1)
Creatinine 0.5 L mg/dL
(0.6-1.0)
Glucose 114 H mg/dl
(70-99)
AST 37 H U/L
(14-36)
08/02/25 21:24
08/02/25 21:24
Vital Signs
Initial and Last Documented VS:
Initial Vital Signs
Temp Pulse Resp BP Pulse Ox
98 F 63 16 130/98 98
08/02/25 20:44 08/02/25 20:44 08/02/25 20:44 08/02/25 20:44 08/02/25 20:44
Last Documented Vital Signs
Temp Pulse Resp BP Pulse Ox
98 F 103 18 121/74 99
08/02/25 20:44 08/02/25 22:45 08/02/25 22:45 08/02/25 22:45 08/02/25 22:45
MDM/Problems Addressed
Differential Diagnosis Includes:
Not limited to cannabinoid hyperemesis dehydration
MDM/Problems Addressed:
25-year-old female was discharged this morning from [place] for hyperemesis related to marijuana and presents back to the ER with continued vomiting. She presents awake alert no acute distress feeling much better with Haldol IV/Fluids.. Repeat
EKG was checked QTc within limits. Patient reports when she was discharged this morning they sent a prescription to her pharmacy that was too far. She asked that I send it to a closer pharmacy in [place] which I did. I sent a new prescription
for Zofran. We had a discussion again stated this is likely marijuana encourage patient to stop. She has no acute distress well-appearing stable for discharge home
*Pulse Oximetry
SaO2: 98
Oxygen Mode of Delivery: Room air
Patient hypoxic: no
*Critical Care Note
Total Time (30-74mins, 75-104mins- exclusive of procedures): Not Applicable
Data Reviewed
Review of Other/Old Records Reveals: Labs and Discharge Summary
ED Attending Note
-
Portions of this chart may have been created with voice recognition software.� Occasional wrong word or��sound alike� substitutions may have occurred due to the inherent limitations of voice recognition software.
Discharge Plan
Departure
Patient Disposition: Home (Routine Discharge)
Date of Disposition: 08/02/25
Time of Disposition: 22:42
Patient with high blood pressure during this ER visit?: Yes
Condition: Fair
Covid-19: Not Applicable
Discharge Problem:
Cannabinoid hyperemesis syndrome
Instructions: Nausea and vomiting in adults - ED (DC)
Prescriptions:
New
ondansetron 4 mg tablet,disintegrating
4 mg PO Q8H PRN (Reason: nausea and vomiting) Qty: 10 0RF
No Action
ondansetron HCl 4 mg tablet
4 mg PO Q6H PRN (Reason: nausea) Qty: 14 0RF
Referrals:
UNKNOWN - PT DOES,NOT KNOW [Family Provider]
Activity Restrictions/Additional Instructions:
As discussed a new prescription for Zofran was sent to the pharmacy you requested. It is recommended that you stop marijuana. Return if any worsening of symptoms.
Interventions
Interventions:
*Risk Screen - Suicide Last Done: 08/02/25 20:44
*General Assessment Last Done: 08/02/25 21:13
*Neglect/Abuse Screening Last Done: 08/02/25 20:44
*ED- Fall Risk Assessment Last Done: 08/02/25 21:13
*ED COVID-19 Vaccine History Last Done: 08/02/25 21:13
*ED Influenza Vaccine History Last Done: 08/02/25 21:13
*Nursing Disposition Last Done: 08/03/25 00:04
TF-Srzyle-Lqiumhaewp Assessment Last Done: 08/02/25 21:20
Discharge Date and Time
Discharge Date/Time: 08/02/25 23:40
Print Language: CHILEAN
[2025-08-02 21:31] LABS: Hematocrit 34.6 % (37.0-47.0); Hemoglobin 12.4 g/dL (12.0-16.0); Mean Corp Hgb Conc. 35.8 g/dL (33.0-37.0); Mean Corpuscular Volume 88.0 fL (81.0-99.0); Nucleated Red Blood Cells % 0 %; Platelet Count 272 10^3/uL (130-400); Red Cell Dist. Width 11.9 % (11.5-14.5)
[2025-08-02] MEDS: HALDOL 1 MG IV (21:39)
[2025-08-02] MEDS: NSS 1000 IV (21:39)
[2025-08-02 22:01] LABS: HCG, Serum Qualitative Screen Negative
[2025-08-02 22:22] LABS: ALT (SGPT) 17 U/L (0-35); AST (SGOT) 37 U/L (14-36); Albumin 4.6 g/dl (3.5-5.0); Alkaline Phosphatase 67 U/L (38-126); Blood Urea Nitrogen 8 mg/dl (7-17); Calcium 9.4 mg/dl (8.4-10.2); Carbon Dioxide 24 mmol/L (22-30); Chloride 102 mmol/L (98-107); Estimated Creatinine Clearance 93 ml/min; Glucose 114 mg/dl (70-99); Potassium 3.4 mmol/L (3.5-5.1); Sodium 134 mmol/L (135-145); Total Protein 7.3 g/dl (6.3-8.2); eGFR > 60.00
[2025-08-02 22:45] VITALS: BP 121/74
[2025-08-02] MEDS: ZOFRAN ODT (ORALLY DISINTEGRATING) 4 MG PO (22:49)
== END 2025-08-02 23:40 | disposition home or self-care (01) ==
LOC: EMR 20:41
PROVIDERS: Nurse Practitioner; EMERGENCY PHYSICIAN Emergency Medicine
DX: R11.16 Cannabis hyperemesis syndrome (principal)
CPT/HCPCS: 96374; 96361; 99284; 80053; 84703; 85025; 93005